=== PATIENT | male | born 1955 | race Caucasian/White ===

== ENCOUNTER 2017-04-20 13:40 | Emergency (ER) | payer MEDICAID ==
[2016-05-10 06:08] VITALS: BMI 29.8
[~2017-04-20 13:40] MED LIST: HYDROCODONE-APA1 TAB PO; ULTRAM50 MG PO
[2017-04-20 14:43] LABS: BASOPHILS 0.3 % (0-2); EOSINOPHILS 3.9 % (0-7); HEMATOCRIT 44.9 % (42.0-54.0); HEMOGLOBIN 15.4 g/dL (13.5-17.5); IMMATURE GRANULOCYTES 0.2 % (0-5); LYMPHOCYTES 27.8 % (15-50); MCH 31.6 pg (26.0-34.0); MCHC 34.3 g/dL (31.0-37.0); MCV 92.2 fL (80.0-100.0); MEAN PLATELET VOLUME 9.9 fL (7.4-10.4); MONOCYTES 7.6 % (2-11); NEUTROPHILS 60.2 % (40-80); PLATELET COUNT 194 10x3/uL (130-400); RBC 4.87 10x6/uL (4.20-6.10); RDW 13.2 % (11.5-14.5); WBC 6.5 10x3/uL (4.8-10.8)
[2017-04-20 15:00] LABS: ALKALINE PHOSPHATASE 81 U/L (46-116); ALT (SGPT) 40 U/L (10-68); BILIRUBIN - TOTAL 0.58 mg/dL (0.2-1.3); CALC OSMOLALITY 286 mosm/kg (275-300); CALCIUM 9.1 mg/dL (8.5-10.1); CARBON DIOXIDE 28.6 mmol/L (21.0-32.0); CHLORIDE - SERUM 106 mmol/L (98-107); CREATININE - SERUM 1.4 mg/dL (0.6-1.3); GLUCOSE 107 mg/dL (74-106); POTASSIUM - SERUM 4.1 mmol/L (3.5-5.1); PROTEIN - SERUM 7.4 g/dL (6.4-8.2); SODIUM 143 mmol/L (136-145); UREA NITROGEN 18 mg/dL (7-18); eGFR NON AFRICAN AMERICAN 55 mL/min (90-120)
[2017-04-20 15:39] LABS: AMYLASE - SERUM 72 U/L (25-115); CREATINE KINASE 126 UL (21-232); LIPASE 127 U/L (73-393); TROPONIN-I < 0.017 ng/mL (0.000-0.060)
== END 2017-04-20 18:24 | disposition home or self-care (01) ==
LOC: D.ER 13:40
PROVIDERS: Family Medicine
DX: K29.00 Acute gastritis without bleeding (principal); K20.9 Esophagitis, unspecified; R00.0 Tachycardia, unspecified

== ENCOUNTER 2019-12-10 05:45 | Day surgery (SDC) | payer MEDICAID ==
[~2019-12-10] VITALS: Ht 172.7 cm; Wt 86.4 kg
--- NOTE | ~2019-12-10 | OP ---
PATIENT NAME: ROSARIO PETERSON MEDICAL RECORD: [id number] :57 LOCATION:D.OPS ADMISSION DATE: SURGEON: MACHELLE SHEA MD DATE OF OPERATION: 12/10/2019 PREOPERATIVE DIAGNOSES: 1. Gastroesophageal reflux disease. 2. Hypercholesterolemia. POSTOPERATIVE DIAGNOSES: 1. Gastroesophageal reflux disease. 2. Hypercholesterolemia. PROCEDURE: 1. EGD with biopsy. 2. Esophageal manometry catheter placement. SURGEON: Machelle Shea MD REPORT OF PROCEDURE: An Olympus endoscope was advanced through the mouth and esophagus. As we passed through, we could see there was a lot of inflammatory changes on the distal aspect of the esophagus with ulcerations. No masses or lesions were felt and there was no sign of any strictures. As we passed the scope through the GE junction, we were able to pass through the stomach with ease into the pylorus and into the second portion of the duodenum. No masses, lesions or ulcerations were seen in the proximal duodenum. As we pulled back, we could see the pylorus and antrum of the stomach where there were some mild inflammatory changes, but no ulcerations or masses. A random biopsy was taken of the antrum and sent off for permanent specimen. Retroflexed views of the GE junction showed a very small hiatal hernia they might have measured a cm in length. There was some laxity to the GE junction noted with respirations. There were no masses or lesions to the body or fundus of the stomach. As we pulled the scope back, we could see the GE junction rested at about 38 cm at the teeth. A biopsy was taken times 2 from the distal third of the esophagus on some of the inflammatory tissue that was present. At this point, the insufflation was removed and esophageal manometry scope was inserted through the left naris, it went down with ease and we were able to place the scope to see that this catheter was progressing through the esophagus and passed the GE junction. At this point, the endoscope was removed. COMPLICATIONS: None. CONDITION: Stable. ANESTHESIA: TIVA. BLOOD LOSS: Minimal. TRANSINT:[id number] Voice Confirmation ID: [id number] DOCUMENT ID: [id number] OPERATIVE REPORT [id number] ROSARIO PETERSON MACHELLE NELSON MD CC: MATTEO PURI [id number] DICTATION DATE: 07/07/20 0817 PORTAL ARCHITECT: 12/10/19 1359 DEP SDC 12/10/[address] [facility] [address] [facility], [facility]
[2019-12-10] MEDS ORDERED: CRESTOR20 MG PO (07:02)
[2019-12-10 07:08] VITALS: BP 138/77; Ht 172.7 cm; Wt 86.4 kg
--- NOTE | 2019-12-10 08:00 | NUR ---
DR. GUERRERO NOTIFIED AND REVIEWED PT'S BEHAVIOR AND ASSESSMENT RESULTS. PT IS A LOW RISK. RESOURCE SHEET PROVIDED AND REVIEWED AT THIS TIME PER DR. GUERRERO. PT VERBALIZED UNDERSTANDING.
--- NOTE | 2019-12-10 09:31 | NUR ---
0920 DRESSED, AWAKE & ALERT. GIVEN DISCHARGE INFORMATION INCLUDING MED REC, SHEET LISTING NSAIDS TO AVOID, RTC APPT., & [facility] POST ENDOSCOPIC D/C INSTRUCTIONS. PT VOICED UNDERSTANDING. TO PRIVATE CAR PER WHEELCHAIR. HOME WITH BROTHER, CHARISSA PETERSON. Ricardo CASTELAN R.N.
== END 2019-12-10 09:20 | disposition home or self-care (01) ==
LOC: D.OPS 05:45
PROVIDERS: ATTEND Surgery
DX: K21.9 Gastro-esophageal reflux disease without esophagitis (principal); E78.00 Pure hypercholesterolemia, unspecified

== ENCOUNTER 2020-01-09 05:32 | Day surgery (SDC) | payer MEDICAID ==
[2020-01-09] VITALS (9 sets, daily range): BP systolic 124–167; BP diastolic 59–96; Ht 175.3 cm; Wt 86.6 kg
[~2020-01-09] VITALS: Ht 175.3 cm; Wt 86.6 kg
[~2020-01-09 05:32] MED LIST changes: +CRESTOR20 MG PO
[2020-01-09 07:07] LABS: ANION GAP 7.8 mmol/L (8-16); CALCIUM 8.1 mg/dL (8.5-10.1); CARBON DIOXIDE 30.4 mmol/L (21.0-32.0); CREATININE - SERUM 1.4 mg/dL (0.6-1.3); POTASSIUM - SERUM 4.2 mmol/L (3.5-5.1)
[2020-01-09 07:45] LABS: BASOPHILS 0.2 % (0-2); EOSINOPHILS 9.2 % (0-7); HEMATOCRIT 42.5 % (42.0-54.0); HEMOGLOBIN 14.4 g/dL (13.5-17.5); LYMPHOCYTES 33.5 % (15-50); MCH 30.8 pg (26.0-34.0); MCHC 33.9 g/dL (31.0-37.0); MCV 90.8 fL (80.0-100.0); MEAN PLATELET VOLUME 9.8 fL (7.4-10.4); MONOCYTES 10.1 % (2-11); PLATELET COUNT 199 10x3/uL (130-400); RBC 4.68 10x6/uL (4.20-6.10); WBC 5.4 10x3/uL (4.8-10.8)
--- NOTE | 2020-01-09 10:47 | NUR ---
OK TO D/C TO FLOOR WITH PAIN OF "7: PER ANESTHESIA - CARE TRANSITIONS NURSE AVAILABLE.
--- NOTE | 2020-01-09 11:06 | NUR ---
PATIENT ADMITTED TO ROOM 2213. ADMISSION COMPLETE. POST OP VITALS STABLE. INCISION SITES X 4 C/D/I. PATIENT IN PAIN 03/14. SQUIRIMING IN BED AND HOLDING STOMACH. PILLOW GIVEN TO SPLINT STOMACH AND CLINICAL SERVICES CONSULTANT SET UP. MD PAGED TO SEE IF CAN GET ONE TIME DOSE MEDICATION TO HELP PATIENT CALM DOWN. WAITING CALL BACK.
--- NOTE | 2020-01-09 11:09 | NUR ---
SPOKE WITH DR SHEA WHO GAVE ORDER FOR ONE TIME DOSE IV ATIVAN 1MG NOW.
--- NOTE | 2020-01-09 11:18 | NUR ---
ONE TIME DOSE ATIVAN GIVEN PER ORDER.
--- NOTE | 2020-01-09 12:38 | NUR ---
O2 SAT90% ON ROOM AIR. PLACED 2L O2 NC ON PATIENT. SAT 96% ON 2L.
--- NOTE | 2020-01-09 15:14 | NUR ---
ASSISTED TO BATHROOM AND BACK. VOIDED IN TOILET. BACK IN BED WITH BROTHER AT BEDSIDE.
--- NOTE | 2020-01-09 20:00 | NUR ---
PT SITTING UP IN BED WITHOUT DISTRESS, AOX4. SPLINTING ABD WITH PILLOW. LAP SITES CDI. IV RIGHT FA INFUSING NS @ 100 WITH DILAUDID EEG TECHNICIAN. PT ASKING FOR WATER. TOLD PT HE WAS NPO AT THIS TIME. PT ASKED FOR ICE CHIPS. AGAIN TOLD PT HE COULD NOT HAVING ANYTHING. GAVE PT MOUTH SWABS TO WET MOUTH. DENIES OTHER NEEDS AT THIS TIME. CL IN REACH, WILL CTM
[2020-01-10] VITALS: BP 137/77
--- NOTE | 2020-01-10 00:25 | NUR ---
PT LYING IN BED SLEEPING WITHOUT DISTRESS, WILL CTM
--- NOTE | 2020-01-10 02:07 | NUR ---
PT MANAGER BUSINESS INTELLIGENCE EMPTY, REPLACED SYRINGE. PT STATES PAIN 4/10 IN ABD AT THIS TIME. ENCOURAGED PT TO AMBULATE. PROVIDED NON SLIP SOCKS AND MASK TO AMBULATE IN HALLWAY. PT SPLINTING WITH PILLOW. DENIES OTHER NEEDS. WILL CTM
--- NOTE | 2020-01-10 02:30 | NUR ---
PT AMBULATING IN HALLWAY, MADE TWO LAPS AROUND NURSES STATION INDEPENDENTLY WITHOUT DIFFICULTY.
--- NOTE | 2020-01-10 03:15 | NUR ---
PT AMBULATED ONE LAP AROUND NURSES STATION
[2020-01-10 04:00] VITALS: BP 129/72
[2020-01-10 06:02] LABS: BASOPHILS 0.1 % (0-2); EOSINOPHILS 0 % (0-7); HEMATOCRIT 36.9 % (42.0-54.0); HEMOGLOBIN 11.8 g/dL (13.5-17.5); IMMATURE GRANULOCYTES 0.1 % (0-5); LYMPHOCYTES 13.5 % (15-50); MCH 29.7 pg (26.0-34.0); MEAN PLATELET VOLUME 9.9 fL (7.4-10.4); MONOCYTES 12.4 % (2-11); NEUTROPHILS 73.9 % (40-80); PLATELET COUNT 197 10x3/uL (130-400); RBC 3.97 10x6/uL (4.20-6.10); RDW 13.4 % (11.5-14.5)
[2020-01-10 06:29] LABS: ANION GAP 12.7 mmol/L (8-16); CARBON DIOXIDE 29.9 mmol/L (21.0-32.0); CREATININE - SERUM 1.4 mg/dL (0.6-1.3); POTASSIUM - SERUM 4.6 mmol/L (3.5-5.1)
[2020-01-10 07:32] LABS: MCV 92.9 fL (80.0-100.0); WBC 10.2 10x3/uL (4.8-10.8)
--- NOTE | 2020-01-10 07:51 | NUR ---
ALERT AND ORIENTED. LUNGS CLEAR BILATERALLY. HEART SOUNDS S1 AND S2 HEARD IN ALL KATZ. BOWEL SOUNDS ACTIVE X 4. IV TO RFA PATENT WITHOUT REDNESS. DENIES NEEDS. BED LOW. CALL FERNANDES AND PERSONAL ITEMS IN REACH. WILL CONTINUE TO MONITOR.
--- NOTE | 2020-01-10 08:00 | OP ---
PATIENT NAME: ROSARIO PETERSON MEDICAL RECORD: [id number] :57 LOCATION:D.[id number] ADMISSION DATE: SURGEON: SANTOSH SHEA MD DATE OF OPERATION: 01/09/2020 PREOPERATIVE DIAGNOSES: 1. Gastroesophageal reflux disease with esophagitis. 2. Hypercholesterolemia. POSTOPERATIVE DIAGNOSES: 1. Gastroesophageal reflux disease with esophagitis. 2. Hypercholesterolemia. PROCEDURE: Laparoscopic Delbert fundoplication. SURGEON: Santosh Shea MD REPORT OF PROCEDURE: The patient's abdomen was prepped and draped in sterile fashion. A Veress needle was inserted in the left upper quadrant and the abdomen was insufflated. An 11-mm Visiport trocar was inserted in the midline just above the umbilicus. At this point, I could see the Veress needle and there was no sign of any injury to bowel or surrounding structures. The Veress needle was then removed in its place, an 11-mm trocar was placed in the left subcostal region. Under direct visualization, a 5-mm trocar was placed in the epigastrium, a 5-mm trocar was placed in the left lateral abdomen and a 5-mm trocar was placed in the right lateral subcostal region. We inserted a liver retractor and elevated the left lobe of the liver. At this point, we can see the patient's stomach and he did not appear to have much of a hiatal hernia. The dissection began by taking down the lesser omentum using Harmonic scalpel. This was continued up to the right side of the right domitila. We continued this dissection taking down the peritoneum and going up into the thoracic cavity releasing any of the attachments of the esophagus. Once we had this freed up as far anteriorly and posteriorly as possible, we went to the greater curvature of the stomach and took down the short gastrics using Harmonic scalpel for the upper third of the stomach and fundus. We approached the left side of the right domitila and again scored the peritoneum and took down these attachments heading up into the thoracic cavity. At this point, we had a 360-degree inspection of the esophagus. The esophagus would pull down into the abdominal cavity with ease. The esophageal hiatus was then reapproximated with interrupted 0 Polydeks times 3. 360-degree posterior wrap was then performed of the fundus of the stomach around the distal esophagus. This was done using interrupted 0 Polydeks times 3 with the top and the bottom suture incorporating a bite of the esophagus. The tissues all appeared to be in good position and not under tension. There is no sign of any active bleeding. We irrigated out the left upper quadrant and then released the liver retractor. The 11-mm trocar site fascias were closed with an interrupted 0 Vicryl using a Aaron-Mitchell suture passer device. The ports and insufflation were then removed. The incisions were infused with a total of 10 mL of 0.25% Marcaine with epinephrine. The skin incisions were then closed with subcutaneous 5-0 Monocryl and dressed appropriately. COMPLICATIONS: None. CONDITION: Stable. ANESTHESIA: General endotracheal and local. OPERATIVE REPORT [id number] ROSAIRO PETERSON BLOOD LOSS: Minimal. TRANSINT:[id number] Voice Confirmation ID: [id number] DOCUMENT ID: [id number] SANTOSH SHEA MD at 0800 CC: MATTEO PURI [id number] DICTATION DATE: 01/09/20 100 STAFF PHYSICAL THERAPIST: 01/09/20 [address] [facility] [address] [place] [address]
--- NOTE | 2020-01-10 10:21 | NUR ---
IV INFILTRATED TO RFA. REMOVED WITH TIP INTACT. SPOKE WITH DR SHEA WHO STATES OK TO LEAVE IV OUT AND CHANGE TO PO REGLAN. STATES PATIENT WILL LIKELY DC AFTER LUNCH. DILAUDID ASSISTANT FLOOR COVERING PRINTER DC AND WASTED PER ORDER.
[2020-01-10] MEDS ORDERED: REGLAN10 MG PO (12:22)
[2020-01-10] MEDS ORDERED: HYDROCODON-ACE1 EA10 PO (12:23)
--- NOTE | 2020-01-10 14:53 | NUR ---
DISCHARGE EDUCATION PROVIDED BOTH WRITTEN AND VERBAL. VERBALIZED UNDERSTANDING. DENIES FURTHER QUESTIONS. RX GIVEN FOR NORCO 10/325MG PER MD. PATIENT DENIES FURTHER NEEDS AND REFUSES WHEELCHAIR FOR DC. PATIENT DC HOME WITH ALL BELONGINGS.
== END 2020-01-10 14:55 | disposition home or self-care (01) ==
LOC: D.OPS 05:32 → D.MS 05:32 → D.PAN 07:30 → D.OPS 07:30 → D.MS 10:35 → D.OPS 01-10 14:55
PROVIDERS: ATTEND Surgery
DX: K21.0 Gastro-esophageal reflux disease with esophagitis (principal); E78.00 Pure hypercholesterolemia, unspecified